=== PATIENT | male | born 1985 ===

== ENCOUNTER 2021-07-25 14:41 | Emergency (ER) | payer SELFPAY ==
[2021-07-25 14:54] VITALS: BP 124/80
--- NOTE | 2021-07-25 15:22 | XRay Report ---
CHEST 2 VIEWS INDICATION / CLINICAL INFORMATION: dyspnea. COMPARISON: None available. FINDINGS: SUPPORT DEVICES: None. HEART / MEDIASTINUM: No significant abnormality. LUNGS / PLEURA: No significant pulmonary or pleural abnormality. No pneumothorax. ADDITIONAL FINDINGS: No significant additional findings. IMPRESSION: 1. No acute findings. Signer Name: Leandro Marr MD Signed: 07/25/2021 3:18 PM Workstation Name: [email or web address]
== END 2021-07-25 22:47 | disposition left against medical advice (07) ==
LOC: ED 14:41
DX: R06.02 Shortness of breath (principal); Z53.21 Procedure and treatment not carried out due to patient leaving prior to being seen by health care provider
CPT/HCPCS: 71046